=== PATIENT | male | born 1990 | race Hispanic/Latino ===

== ENCOUNTER 2018-04-28 09:03 | Day surgery (SDC) | payer OTHER ==
[2018-04-01 13:48] VITALS: BMI 21.9
[2018-04-28] MEDS ORDERED: ceFAZolin IV 1 gm in Dextrose 0 GM/0 ML BAG IVPB ONE (11:30)
[2018-04-28] MEDS ORDERED: Lidocaine/Epinephrine 1% 1:100000 10 ML IJ ONE ×2 (11:31→13:45)
[2018-04-28] MEDS ORDERED: Bupivacaine 0.25% 20 ML INJ IJ ONE ×2 (11:31→13:45)
[2018-04-28] MEDS ORDERED: ceFAZolin IV 2 gm in Dextrose 2 GM/50 ML BAG IVPB ONE (13:45)
[2018-04-28] MEDS ORDERED: Propofol 10 mg/ml Inj (20 ML) ONE (13:52)
[2018-04-28] MEDS ORDERED: Midazolam 2 MG/2 ML VIAL ONE (13:52)
[2018-04-28] MEDS ORDERED: Rocuronium 10 mg/ml (5 ml) ONE ×2 (14:36)
[2018-04-28] MEDS ORDERED: HYDROmorphone 0.5 mg/0.5 ml ISec IVP PRN (15:45)
[2018-04-28] MEDS ORDERED: Neostigmine Methylsulfate 3mg/3ml Syringe IV ONE (16:03)
--- NOTE | 2018-04-28 16:28 | PCM.SURG1 ---
Surgeon's Initial Post Op Note - Surgeon's Notes Surgeon: Akosua Beef Selector: Alexandrea PGY4, Benjamin PGY3 Type of Anesthesia: General Endo, Local Pre-Operative Diagnosis: L inguinal hernia Operative Findings: Indirect L inguinal hernia w. cord lipoma Post-Operative Diagnosis: same Operation Performed: Robotic assisted TAP inguinal hernia repair w. TAP block Specimen/Specimens Removed: cord lipoma Estimated Blood Loss: EBL {In ML}: 10 Blood Products Given: N/A Drains Used: No Drains Post-Op Condition: Good Date of Surgery/Procedure: 04/28/18 Time of Surgery/Procedure: 16:28
[2018-04-28] MEDS ORDERED: Oxycodone/Acetaminophen 5/325 mg Tab PO PRN (16:29)
[2018-04-28] MEDS ORDERED: Lactated Ringer's 1,000 ML IV ONE (18:15)
[2018-04-28 18:18] VITALS: RESP 18; TEMP 97.8
[2018-04-28 18:57] VITALS: BP 126/64; PULSE 72; O2SAT 100
--- NOTE | 2018-04-29 03:12 | OP ---
PROCEDURE DATE: 04/28/2018 PREOPERATIVE DIAGNOSIS: Left inguinal hernia. POSTOPERATIVE DIAGNOSIS: Left inguinal hernia containing lipoma of the spermatic cord. PROCEDURE DONE: 1. Robotic left inguinal hernia repair with a mesh. 2. Robotic excision of the lipoma of the cord. 3. Bilateral laparoscopic TAP block placement. SURGEON: Chad South MD. CATSHOVEL DRIVER: Moses Lechuga DO; Chao Alexander DO, PGY-2 resident. TYPE OF ANESTHESIA: General endotracheal tube anesthesia. ESTIMATED BLOOD LOSS: Around 10 mL. DRAINS: None. PATHOLOGY: The hernial sac and the lipoma of the cord was sent for pathology. COMPLICATIONS: None. INTRAOPERATIVE FINDINGS: The patient had left inguinal hernia with lipoma of the spermatic cord. DESCRIPTION OF PROCEDURE: On intraoperative steps, this is a 28-year-old male who was diagnosed with left inguinal hernia and the patient was consented for the robotic left inguinal hernia with repair with a mesh, brought to the OR, placed supine on operating table. After induction of the anesthesia, the abdomen was prepped and draped in the usual sterile fashion. A supraumbilical transverse incision was made after incising the skin, subcutaneous tissue, and the fascia. The robotic camera port was placed. Pneumo was created. Another 3/8 mm port was placed in upper abdomen. Robot was brought in. Camera arm as well as arm 1 and arm 2 were docked. The left ASIS was identified and the dissection was done from the left ASIS up to the midline, and the peritoneum was dissected in the midline up to the space of Retzius and laterally to the lateral abdominal wall. Spermatic cord structures and the vas deferens was dissected, and dissection was carried down inferiorly up to the pelvic brim and large lipoma of the spermatic cord was reduced back into the peritoneal cavity, and it was sent off the table for pathology. Now, the left anatomical mesh was placed and after proper placement of the mesh, the peritoneum was sutured with 0 Vicryl, it was sutured with 3-0 PDS V-Loc suture and after that the procedure was converted to laparoscopic after undocking the robot and bilateral TAP block was given after 30:30 mL of Marcaine in transverse abdominis muscle plane area. All the ports were taken out under vision. Pneumo was deflated. Umbilical port site was closed in two layers, the fascia with 0 Vicryl interrupted suture, skin with 4-0 Monocryl, and dry sterile dressing was applied. The patient tolerated the procedure well. Count of the instrument and gauze was correct. There was no apparent complication. The patient was extubated in the OR and sent to the postanesthesia care unit in stable condition. Chad South MD MTDTeri
== END 2018-04-28 20:10 | disposition home or self-care (01) ==
LOC: C.SDS 09:03
PROVIDERS: ATTEND Surgery Surgical Critical Care
DX: K40.90 Unilateral inguinal hernia, without obstruction or gangrene, not specified as recurrent (principal); D17.6 Benign lipomatous neoplasm of spermatic cord
CPT/HCPCS: 49650; 64488; 88304; C1781; J0690; J1100; J1885; J2001; J2250; J2405; J2704; J2710; J3010; J7120